=== PATIENT | female | born 1985 | race Two or more races ===

== ENCOUNTER → 2023-03-19 | Outpatient (CLI) | payer OTHER ==
--- NOTE | 2023-03-19 13:17 | XR ---
EXAMINATION TYPE: XR hand complete bilateral DATE OF EXAM: 03/19/2023 COMPARISON: None HISTORY: Pain TECHNIQUE: Bilateral hands examined in 3 projections each. FINDINGS: No acute fractures or dislocations are evident. Soft tissues are normal. Joint spaces are preserved. IMPRESSION: 1. No acute osseous abnormality bilateral hands.
--- NOTE | 2023-03-19 13:18 | XR ---
EXAMINATION TYPE: XR forearm bilateral DATE OF EXAM: 03/19/2023 COMPARISON: None HISTORY: Pain TECHNIQUE: Two-view bilateral forearms FINDINGS: Radius aligns normally with the humerus bilaterally. Anterior fat pads are normal. No eleva tion of posterior fat pads is evident. There are no acute fractures or dislocations evident. IMPRESSION: 1. No acute osseous abnormalities bilateral forearms.
== END | disposition home or self-care (01) ==
LOC: RADXRMAIN 12:50
PROVIDERS: ATTEND Emergency Medicine
DX: S56.211A Strain of other flexor muscle, fascia and tendon at forearm level, right arm, initial encounter (principal); R20.9 Unspecified disturbances of skin sensation; M79.641 Pain in right hand; M79.642 Pain in left hand